=== PATIENT | male | born 1950 | race Caucasian/White ===

== ENCOUNTER 2020-09-05 00:25 | Inpatient (IN) | payer MEDICARE, OTHER ==
[~2020-09-05 00:25] MED LIST: AMOX TR-K CLV1 EAC4 PO; ASPIRIN EC81 MG PO; CLARITIN10 MG PO; CYMBALTA20 MG PO; FEOSOL325 MG PO; FOLIC ACID1 MG PO; LASIX20 MG PO; LEVAQUIN750 MG PO; MUCUS RELIEF400 MG PO; MULTILEX-T-M W1 EACH PO; NAPROXEN500 MG PO; NICOTINE PATCH1 EAC2 TD; ONDANSETRON HCL4 MG PO; PRILOSEC20 MG PO; SEROQUEL 100MG100 MG PO; SM STOOL SOFTE PO; SYMBICORT 16010.2 GM INH; TRAZODONE 150M150 MG PO; VENTOLIN HFA IN18 GM INH; ZANTAC150 MG PO
[2020-09-05 01:30] LABS: BASOPHIL 0.6 % (0-2); EOSINOPHIL 0.4 % (0-7); HCT 40.5 % (42.0-52.0); HGB 12.9 g/dl (13.2-18.0); LYMPHOCYTE 9.1 % (15-48); MCH 34.6 pg (25.0-31.0); MCHC 31.9 g/dL (32.0-36.0); MCV 108.6 fL (78.0-100.0); MONOCYTE 8.4 % (0-12); NRBC 0.3; PLT 139 K/uL (150-400); RBC 3.73 M/uL (4.70-6.00); RDW 14.4 % (11.5-14.0); WBC 9.9 K/uL (4.0-10.5)
[2020-09-05 01:56] LABS: PRO-BNP 537 pg/mL (<125)
[2020-09-05 01:57] LABS: ALBUMIN 3.5 g/dL (3.4-5.0); BILIRUBIN - TOTAL 0.3 mg/dL (0.2-1.0); BUN/CREAT RATIO (CALC) 18.2 RATIO; CREATININE 0.77 mg/dL (0.67-1.17); POTASSIUM 3.5 mmol/L (3.5-5.1); TOTAL PROTEIN 7.5 g/dL (6.4-8.2)
[2020-09-05 02:00] LABS: LACTIC ACID 2.9 mmol/L (0.4-1.9)
[2020-09-05 02:15] LABS: CORONAVIRUS 2019 SARS-COV-2 NEGATIVE (NEGATIVE); INFLUENZA A NAA NEGATIVE (NEGATIVE)
[2020-09-05 09:36] LABS: BILIRUBIN NEGATIVE (NEGATIVE); BLOOD NEGATIVE Ery/uL (NEGATIVE); CLARITY CLEAR (CLEAR); COLOR YELLOW (YELLOW); GLUCOSE (U) NORMAL (NORMAL); LEUKOCYTES NEGATIVE Leu/uL (NEGATIVE); NITRITE NEGATIVE (NEGATIVE); PROTEIN 2+ mg/dL (NEGATIVE); SPECIFIC GRAVITY >=1.030 (1.001-1.030); UROBILINOGEN 0.2 mg/dL (0.2-1.0)
[2020-09-05 09:42] LABS: BACTERIA TRACE; GRANULAR CASTS TRACE
[2020-09-05] MEDS ORDERED: FLOMAX 0.4 MG0.4 MG PO (12:39)
[2020-09-05] MEDS ORDERED: DESYREL50 MG PO (12:40)
[2020-09-05] MEDS ORDERED: SINGULAIR10 MG PO (12:40)
[2020-09-06 06:53] LABS: BASOPHIL 0.4 % (0-2); EOSINOPHIL 0.5 % (0-7); HCT 38.7 % (42.0-52.0); HGB 12.3 g/dl (13.2-18.0); LYMPHOCYTE 8.3 % (15-48); MCHC 31.8 g/dL (32.0-36.0); MCV 106.9 fL (78.0-100.0); MONOCYTE 7.7 % (0-12); NEUTROPHIL 82.5 % (41-80); NRBC 0; PLT 113 K/uL (150-400); RBC 3.62 M/uL (4.70-6.00); RDW 14.3 % (11.5-14.0); WBC 11.2 K/uL (4.0-10.5)
[2020-09-06 07:37] LABS: BUN/CREAT RATIO (CALC) 20.3 RATIO; CREATININE 0.79 mg/dL (0.67-1.17); POTASSIUM 4.1 mmol/L (3.5-5.1)
[2020-09-07 04:38] LABS: BASOPHIL 0.3 % (0-2); EOSINOPHIL 1.4 % (0-7); HCT 35.3 % (42.0-52.0); HGB 11.5 g/dl (13.2-18.0); LYMPHOCYTE 14.6 % (15-48); MCH 34.5 pg (25.0-31.0); MCHC 32.6 g/dL (32.0-36.0); MPV 10.4 fL (6.0-9.5); NEUTROPHIL 74.1 % (41-80); NRBC 0; PLT 120 K/uL (150-400); RBC 3.33 M/uL (4.70-6.00); RDW 14.3 % (11.5-14.0); WBC 8.8 K/uL (4.0-10.5)
[2020-09-07 05:05] LABS: BUN/CREAT RATIO (CALC) 18.9 RATIO; CREATININE 0.74 mg/dL (0.67-1.17); POTASSIUM 3.5 mmol/L (3.5-5.1)
--- NOTE | 2020-09-07 16:08 | NUR ---
09/07/20 Mr. Frederick lives with his son. He is followed by [facility]. Patient has 02, rw, and 3in1. A referral was made to [facility] per patient choice; affliation explained. - Report given to MS CHRISTIANO Norton. Please notify [facility] at [phone] when pt is discharged.
--- NOTE | 2020-09-08 03:01 | NUR ---
0035: NOTIFIED BY RAJ PRESTON THAT PT STATED HE HAD FALLEN IN FLOOR. WALKED INTO ROOM AND PT WAS LYING IN THE BED. ASKED PT IF HE HAD FALLEN IN FLOOR. PT STATED "I GOT UP OUT OF THE BED AND FELL ON MY ASS BUT IM OK." PT ALERT AND ORIENTED X4. EXAMINED PT AND FOUND NO APPARENT INJURIED. Orestes GIFFORD APRN NOTIFIED OF INCIDENT AND CAME TO ROOM AND EXAMAINED PT. XRAYS ORDERED. PT DENIES INJURY. PT REDEUCATED ABOUT CALLING FOR ASSISTANCE BEFORE GETTING OOB. PT STATED " WHEN I NEED TO PEE I GOT TO GO NOW AND I WILL GET UP." PT EDUCATED THAT URINAL IS ON BED RAIL AND STAFF WOULD HELP WITH BATHROOM ASSITANCE.
[2020-09-08 04:50] LABS: ALBUMIN 2.7 g/dL (3.4-5.0); BILIRUBIN - TOTAL 0.5 mg/dL (0.2-1.0); BUN/CREAT RATIO (CALC) 22.4 RATIO; CREATININE 0.85 mg/dL (0.67-1.17); GLOBULIN (CALCULATION) 3.9 g/dL; POTASSIUM 3.5 mmol/L (3.5-5.1); TOTAL PROTEIN 6.6 g/dL (6.4-8.2)
[2020-09-09 05:48] LABS: BASOPHIL 0.1 % (0-2); EOSINOPHIL 0.1 % (0-7); HCT 38.8 % (42.0-52.0); HGB 12.5 g/dl (13.2-18.0); LYMPHOCYTE 13.3 % (15-48); MCH 33.6 pg (25.0-31.0); MCHC 32.2 g/dL (32.0-36.0); MCV 104.3 fL (78.0-100.0); MONOCYTE 9.2 % (0-12); NEUTROPHIL 76.7 % (41-80); NRBC 0; PLT 182 K/uL (150-400); RBC 3.72 M/uL (4.70-6.00); RDW 14.3 % (11.5-14.0)
[2020-09-09 06:11] LABS: BUN/CREAT RATIO (CALC) 31.2 RATIO; CREATININE 0.77 mg/dL (0.67-1.17); POTASSIUM 3.3 mmol/L (3.5-5.1)
[2020-09-09 18:36] LABS: FT4 (FREE T4) 0.9 ng/dL (0.76-1.46)
[2020-09-11] MEDS ORDERED: VENTOLIN HFA IN18 GM INH (10:14)
[2020-09-11] MEDS ORDERED: PREDNISONE 20MG20 MG PO (10:16)
[2020-09-11] MEDS ORDERED: CEFDINIR300 MG PO (10:16)
[2020-09-11] MEDS ORDERED: VIBRAMYCIN100 MG PO (10:16)
--- NOTE | 2020-09-11 14:41 | NUR ---
09/11/20 Jeanette Gutierrez notified [facility] of patient's discharge.
== END 2020-09-11 13:34 | disposition home or self-care (01) | DRG 193 ==
LOC: FER 00:25 → FMS 08:31
PROVIDERS: Emergency Medicine; ADMIT Allergy & Immunology Allergy
DX: J18.9 Pneumonia, unspecified organism (principal); J96.21 Acute and chronic respiratory failure with hypoxia; J96.22 Acute and chronic respiratory failure with hypercapnia; J44.1 Chronic obstructive pulmonary disease with (acute) exacerbation; J44.0 Chronic obstructive pulmonary disease with (acute) lower respiratory infection; R91.1 Solitary pulmonary nodule; F10.10 Alcohol abuse, uncomplicated; Z20.822 Contact with and (suspected) exposure to COVID-19; K21.9 Gastro-esophageal reflux disease without esophagitis; F41.9 Anxiety disorder, unspecified; F17.210 Nicotine dependence, cigarettes, uncomplicated; E11.9 Type 2 diabetes mellitus without complications; I10 Essential (primary) hypertension; Z90.49 Acquired absence of other specified parts of digestive tract; Z98.890 Other specified postprocedural states; F32.9 Major depressive disorder, single episode, unspecified; M19.90 Unspecified osteoarthritis, unspecified site; Z23 Encounter for immunization
CPT/HCPCS: 36415; 36600; 71045; 71046; 71275; 72170; 73522; 80048; 80053; 81001; 82150; 82803; 83605; 83880; 84145; 84439; 84443; 84484; 85025; 87040; 87088; 90662; 90732; 93005; 94010; 94640; 94664; 94667; 94668; 97162; 97530-GP; C9113; G0008; G0009; G0480; J0696; J1650; J1940; J2060; J2405; J2543; J2930; J3411; J3475; J7030; J7050; J7120; J7512; Q9967; U0002

== ENCOUNTER 2021-11-07 14:25 | Emergency (ER) | payer MEDICARE, OTHER ==
[~2021-11-07 14:25] MED LIST changes: +CEFDINIR300 MG PO; +DESYREL50 MG PO; +FLOMAX 0.4 MG0.4 MG PO; +PREDNISONE 20MG20 MG PO; +SINGULAIR10 MG PO; +VIBRAMYCIN100 MG PO
[2021-11-07 14:43] LABS: BASOPHIL 0.2 % (0-2); EOSINOPHIL 0.3 % (0-7); HCT 40.2 % (42.0-52.0); HGB 14.1 g/dl (13.2-18.0); LYMPHOCYTE 10.1 % (15-48); MCH 33.7 pg (25.0-31.0); MCHC 35.1 g/dL (32.0-36.0); MCV 96.2 fL (78.0-100.0); MONOCYTE 8.3 % (0-12); MPV 9.9 fL (6.0-9.5); NEUTROPHIL 80.6 % (41-80); NRBC 0; PLT 211 K/uL (150-400); RBC 4.18 M/uL (4.70-6.00); RDW 13.7 % (11.5-14.0); WBC 13.2 K/uL (4.0-10.5)
[2021-11-07 14:51] LABS: BILIRUBIN NEGATIVE (NEGATIVE); BLOOD NEGATIVE Ery/uL (NEGATIVE); CLARITY CLEAR (CLEAR); COLOR YELLOW (YELLOW); GLUCOSE (U) NORMAL (NORMAL); LEUKOCYTES NEGATIVE Leu/uL (NEGATIVE); NITRITE NEGATIVE (NEGATIVE); PROTEIN NEGATIVE (NEGATIVE); SPECIFIC GRAVITY <=1.005 (1.001-1.030); UROBILINOGEN 0.2 mg/dL (0.2-1.0)
[2021-11-07 14:55] LABS: AMPHETAMINES NEGATIVE (NEGATIVE); BARBITURATES NEGATIVE (NEGATIVE); ECSTASY (MDMA) NEGATIVE (NEGATIVE); MARIJUANA (THC) NEGATIVE (NEGATIVE); METHADONE NEGATIVE (NEGATIVE); OPIATES NEGATIVE (NEGATIVE); OXYCODONE NEGATIVE (NEGATIVE)
[2021-11-07 15:06] LABS: ALBUMIN 4.4 g/dL (3.4-5.0); ALKALINE PHOSHATASE 84 U/L (46-116); ALT 29 U/L (16-63); AST 21 U/L (15-37); BILIRUBIN - TOTAL 0.8 mg/dL (0.2-1.0); BUN 7 mg/dL (7-18); BUN/CREAT RATIO (CALC) 7.4 RATIO; CHLORIDE 93 mmol/L (98-107); CO2 (BICARBONATE) 29 mmol/L (21-32); CREATININE 0.94 mg/dL (0.67-1.17); GLOBULIN (CALCULATION) 3.7 g/dL; GLUCOSE 103 mg/dL (74-106); LIPASE 62 U/L (73-393); POTASSIUM 3.6 mmol/L (3.5-5.1); TOTAL PROTEIN 8.1 g/dL (6.4-8.2)
[2021-11-07] MEDS ORDERED: ONDANSETRON ODT4 MG PO (15:41)
== END 2021-11-07 16:55 | disposition home or self-care (01) ==
LOC: FER 14:25
PROVIDERS: Emergency Medicine
DX: R11.2 Nausea with vomiting, unspecified (principal); F10.239 Alcohol dependence with withdrawal, unspecified; E87.1 Hypo-osmolality and hyponatremia; I10 Essential (primary) hypertension; J44.9 Chronic obstructive pulmonary disease, unspecified; F17.210 Nicotine dependence, cigarettes, uncomplicated; Y90.0 Blood alcohol level of less than 20 mg/100 ml
CPT/HCPCS: 36415; 74022; 80053; 80305; 81003; 83690; 85025; G0480; J2405; J7030